=== PATIENT | female | born 1990 | race Caucasian/White ===

== ENCOUNTER → 2019-06-14 | Outpatient (CLI) | payer BC ==
[2019-06-15 15:07] LABS: HPV 16 Negative (Negative); HPV 18 Negative (Negative); HPV OTHER HR TYPES Negative (Negative)
== END | disposition home or self-care (01) ==
LOC: LAB 10:22 → LAB SHORT 10:22
PROVIDERS: Student in an Organized Health Care Education/Training Program
DX: Z01.419 Encounter for gynecological examination (general) (routine) without abnormal findings (principal)
CPT/HCPCS: 87624; G0145

== ENCOUNTER → 2020-01-30 | Outpatient (CLI) | payer BC | END | disposition home or self-care (01) | LOC: LAB 09:00 → LAB SHORT 09:00 → LAB FUT 12-21 10:00 | DX: N20.2 Calculus of kidney with calculus of ureter (principal) | CPT/HCPCS: 81050 ==

== ENCOUNTER → 2024-06-14 | Outpatient (CLI) | payer BC ==
[2024-06-14 15:12] LABS: Source, Urine Clean Catch
[2024-06-14 17:27] LABS: Appearance, Urine Clear (Clear); Bilirubin, Urine Neg (Neg); Blood, Urine Neg (Neg); Glucose Qualitative, Urine Neg (Neg); Ketones, Urine Neg (Neg); Leukocyte Esterase, Urine 3+ (Neg); Nitrite, Urine Neg (Neg); Protein, Urine Neg (Neg); Urobilinogen, Urine NORM (Normal)
[2024-06-14 17:31] LABS: BASOPHILS ABSOLUTE AUTO 0.15 K/mm3 (0.00-0.23); BASOPHILS PERCENT AUTO 1 % (0-2); EOSINOPHILS ABSOLUTE AUTO 0.39 K/mm3 (0.00-0.68); EOSINOPHILS PERCENT AUTO 3 % (0-6); Hematocrit 39.6 % (33.0-51.0); Hemoglobin 13.2 g/dL (11.5-16.0); IMMATURE GRAN ABSOLUTE AUTO 0.03 K/mm3 (0.00-0.10); IMMATURE GRAN PERCENT AUTO 0 % (0-1); LYMPHOCYTES ABSOLUTE AUTO 3.04 K/mm3 (0.84-5.20); LYMPHOCYTES PERCENT AUTO 25 % (21-46); MONOCYTES ABSOLUTE AUTO 0.99 K/mm3 (0.16-1.47); MONOCYTES PERCENT AUTO 8 % (4-13); Mean Corpuscular HGB 29.3 pg (26.0-34.0); Mean Corpuscular HGB Conc 33.3 g/dL (31.5-36.5); Mean Corpuscular Volume 88 fL (80-100); NEUTROPHILS PERCENT AUTO 62 % (41-73); Platelet Count 378 K/mm3 (150-400); RDW Coefficient Variation 12.8 % (11.7-14.2); RDW Standard Deviation 41.5 fL (35.1-46.3)
[2024-06-14 17:38] LABS: Color, Urine Pale Yellow (P-Yellow)
[2024-06-14 17:40] LABS: Bacteria Few /hpf; Red Blood Cells, Urine 0-2 /hpf (0-2); Squamous Epithelial Cells Few /hpf (Few)
[2024-06-15 16:05] LABS: HEPATITIS B SURFACE ANTIGEN Negative (Negative)
[2024-06-16 10:18] LABS: HIV 1,2 COMBO ANTIGEN/ANTIBODY Negative (Negative)
[2024-06-16 12:31] LABS: HEPATITIS C AB CIA INTERP Negative (Negative); HEPATITIS C ANTIBODY CIA INDEX 0.02 IV
== END | disposition home or self-care (01) ==
LOC: LAB SHORT 15:06
PROVIDERS: Registered Nurse Community Health
DX: Z34.91 Encounter for supervision of normal pregnancy, unspecified, first trimester (principal)
CPT/HCPCS: 81001; 83036; 84443; 86803; 87086; 87340; 87389

== ENCOUNTER → 2024-07-06 | Outpatient (CLI) | payer BC | END | disposition home or self-care (01) | LOC: LAB 13:57 → LAB SHORT 13:57 | DX: R30.0 Dysuria (principal) | CPT/HCPCS: 87077; 87086; 87186 ==

== ENCOUNTER → 2024-08-17 | Outpatient (CLI) | payer BC ==
[2024-08-17 19:52] LABS: Free Thyroxine 0.79 ng/dL (0.70-1.60); Thyroid Stimulating Hormone 1.1 uIU/mL (0.360-4.800); Triiodothyronine, Free 2.77 pg/mL (2.18-3.98)
== END ==
LOC: LAB 18:33 → LAB SHORT 18:33
PROVIDERS: Registered Nurse Community Health
DX: E03.9 Hypothyroidism, unspecified (principal)
CPT/HCPCS: 84439; 84443; 84481

== ENCOUNTER → 2024-09-20 | Outpatient (CLI) | payer BC ==
[2024-09-20 20:11] LABS: Free Thyroxine 0.85 ng/dL (0.70-1.60)
[2024-09-20 20:13] LABS: Thyroid Stimulating Hormone 1.35 uIU/mL (0.360-4.800); Triiodothyronine, Free 2.62 pg/mL (2.18-3.98)
[2024-09-20 21:00] LABS: Chlamydia Trachomatis Urine NOT DETECTED (NOT DETECT); Neisseria Gonorrhoea Urine NOT DETECTED (NOT DETECT)
== END ==
LOC: LAB 18:51 → LAB SHORT 18:51
PROVIDERS: Registered Nurse Community Health
DX: O99.282 Endocrine, nutritional and metabolic diseases complicating pregnancy, second trimester (principal); Z3A.00 Weeks of gestation of pregnancy not specified
CPT/HCPCS: 84439; 84443; 84481; 87491; 87591

== ENCOUNTER → 2024-12-21 | Outpatient (CLI) | payer BC ==
[2024-12-21 20:46] LABS: Thyroid Stimulating Hormone 1.78 uIU/mL (0.360-4.800)
== END ==
LOC: LAB SHORT 18:12 → LAB 18:12
PROVIDERS: Registered Nurse Community Health
DX: E03.9 Hypothyroidism, unspecified (principal)
CPT/HCPCS: 84439; 84443; 84481

== ENCOUNTER → 2025-01-03 | Outpatient (CLI) | payer BC | LOC: LAB 12:00 → LAB SHORT 12:00 | DX: Z34.03 Encounter for supervision of normal first pregnancy, third trimester (principal) | CPT/HCPCS: 87081; 87150 ==

== ENCOUNTER 2025-02-03 18:26 | Inpatient (IN) | payer BC ==
[~2025-02-03] VITALS: Ht 162.6 cm; Wt 85.0 kg
[~2025-02-03 18:26] MED LIST: Tranexamic Acid 1000 MG/10 ML 10ML Vial (SDV) XX ONE
[2025-02-03 18:47] VITALS: BP 133/86
[2025-02-03 19:02] VITALS: BP 127/82
[2025-02-03 19:17] VITALS: BP 139/87
[2025-02-03 19:32] VITALS: BP 134/88
[2025-02-03 20:30] VITALS: BP 133/84
[2025-02-03] MEDS ORDERED: OXYTOCIN/RINGER'S LACTATE 500 ML IV PRN (22:50)
[2025-02-03] MEDS ORDERED: Ondansetron HCl 2 MG / ML 2ML Vial IV PRN (22:50)
[2025-02-03] MEDS ORDERED: Oxytocin 10 Unit / ML Vial IM PRN (22:50)
[2025-02-03] MEDS ORDERED: ePHEDrine Sulfate 50 MG/ML 1ML Injection XX PRN (22:50)
[2025-02-03] MEDS ORDERED: Tranexamic Acid 100 ML IV SCH (22:50)
[2025-02-03] MEDS ORDERED: FentaNYL Citrate 50 MCG/ML 2 ML Injection IV PRN (22:50)
[2025-02-03] MEDS ORDERED: FentaNYL 2mcg/ml-Bup 0.1% Epd 250 ML EPI PRN (22:50)
[2025-02-03] MEDS ORDERED: Carboprost Tromethamine 250 MCG/ML 1ML Amp IM PRN (22:50)
[2025-02-03] MEDS ORDERED: Methylergonovine Maleate 0.2MG / ML 1ML Amp IM PRN (22:50)
[2025-02-03 22:57] LABS: BASOPHILS ABSOLUTE AUTO 0.08 K/mm3 (0.00-0.23); BASOPHILS PERCENT AUTO 1 % (0-2); EOSINOPHILS ABSOLUTE AUTO 0.13 K/mm3 (0.00-0.68); EOSINOPHILS PERCENT AUTO 1 % (0-6); Hematocrit 37.0 % (33.0-51.0); Hemoglobin 12.9 g/dL (11.5-16.0); IMMATURE GRAN ABSOLUTE AUTO 0.19 K/mm3 (0.00-0.10); IMMATURE GRAN PERCENT AUTO 2 % (0-1); LYMPHOCYTES ABSOLUTE AUTO 3.12 K/mm3 (0.84-5.20); LYMPHOCYTES PERCENT AUTO 26 % (21-46); MONOCYTES ABSOLUTE AUTO 0.98 K/mm3 (0.16-1.47); MONOCYTES PERCENT AUTO 8 % (4-13); Mean Corpuscular HGB Conc 34.9 g/dL (31.5-36.5); Mean Corpuscular Volume 88 fL (80-100); NEUTROPHILS ABSOLUTE AUTO 7.75 K/mm3 (1.96-9.15); NEUTROPHILS PERCENT AUTO 63 % (41-73); NRBC ABSOLUTE 0.00 K/mm3 (0.00-0.02); NRBC Auto 0.0 /100 WBC (0.0-0.2); Platelet Count 304 K/mm3 (150-400); RDW Coefficient Variation 13.2 % (11.7-14.2); RDW Standard Deviation 42.1 fL (35.1-46.3)
[2025-02-03] MEDS ORDERED: ZYRTEC10 M1 PO (23:32)
[2025-02-03] MEDS ORDERED: Cranberry425 MG PO (23:33)
[2025-02-03] MEDS ORDERED: CHOLINE500 MG PO (23:33)
[2025-02-03] MEDS ORDERED: FISH OIL 1,0001 EA10 PO (23:34)
[2025-02-03] MEDS ORDERED: LEVOTHYROXINE25 MC9 PO (23:35)
[2025-02-03] MEDS ORDERED: FLOMAX0.4 MG PO (23:36)
[2025-02-03] MEDS ORDERED: BUPR150ER PO (23:36)
[2025-02-03] MEDS ORDERED: PANT40 PO (23:37)
[2025-02-03 23:46] VITALS: BP 145/78
[2025-02-04] VITALS (38 sets, daily range): BP systolic 82–147; BP diastolic 52–91
[2025-02-04] MEDS ORDERED: OXYTOCIN/RINGER'S LACTATE 500 ML IV SCH (03:45)
[2025-02-04] MEDS ORDERED: FentaNYL Citrate 50 MCG/ML 2 ML Injection ONE (10:09)
[2025-02-05] VITALS (29 sets, daily range): BP systolic 96–134; BP diastolic 49–104
[2025-02-05] MEDS ORDERED: Penicillin G Potassium 5,000,000 UNITS in NS 250 ML IV ONE (02:30)
[2025-02-05] MEDS ORDERED: CeFAZolin Sodium 2,000 MG in NS 100 ML IV SCH ×2 (05:55→15:00)
[2025-02-05] MEDS ORDERED: Citric Acid/Sodium Citrate 30 ML BTL PO PRN (06:00)
[2025-02-05] MEDS ORDERED: Metoclopramide HCl 5MG / ML 2ML Vial IV PRN (06:00)
[2025-02-05] MEDS ORDERED: Penicillin G Potassium 2,500,000 UNITS in Dextrose 5% 100 ML IV SCH (07:00)
[2025-02-05] MEDS ORDERED: Phenylephrine HCl 100 MCG/ML-NS 10MLSYR (1MG/10ML) ONE (07:02)
[2025-02-05] MEDS ORDERED: Lidocaine HCl 2% 10 ML SDA ONE ×3 (07:08→07:20)
[2025-02-05] MEDS ORDERED: Oxytocin 10 Unit / ML Vial ONE ×4 (07:08→07:29)
[2025-02-05] MEDS ORDERED: FentaNYL Citrate 50 MCG/ML 2 ML Injection ONE ×2 (07:10→07:33)
[2025-02-05] MEDS ORDERED: Methylergonovine Maleate 0.2MG / ML 1ML Amp ONE (07:13)
[2025-02-05 07:40] LABS: PCO2 Cord - Arterial 61.4 mmHg (40-50); PO2 Cord - Arterial < 12.3 mmHg (16-20); pH Cord - Arterial 7.21 (7.28-7.35)
[2025-02-05 07:43] LABS: PCO2 Cord - Venous 44.8 mmHg (40-50); PO2 Cord - Venous 22.5 mmHg (28-32); pH Umbilical Cord - Venous 7.32 (7.26-7.35)
--- NOTE | 2025-02-05 07:51 | NUR ---
02/05/25 0751 Omaira Smith VIABLE INFANT DELIVERED VIA PRIMARY C/S FOR FAIL TO PROGRESS AT 0709. GASES SENT WITH RT WELL CORD BLOOD. BAKRI BALLOON PLACED BY MANUEL. SEE MD NOTES FOR OPERATIVE DETAILS. APGARS AND INFANT DETAILS PENDING AT THIS TIME.
[2025-02-05] MEDS ORDERED: OXYTOCIN/RINGER'S LACTATE 500 ML IV SCH (08:05)
[2025-02-05] MEDS ORDERED: Ondansetron HCl 2 MG / ML 2ML Vial IV PRN ×2 (08:10→08:40)
[2025-02-05] MEDS ORDERED: Morphine Sulfate 4 MG/1 ML Injection IV PRN (08:10)
[2025-02-05] MEDS ORDERED: OxyCODONE 5 mg/Acetamin 325 mg TABLET PO PRN (08:15)
[2025-02-05] MEDS ORDERED: Magnesium Hydroxide Conc 10 ML UDC PO PRN (08:15)
[2025-02-05] MEDS ORDERED: HYDROmorphone HCl/Pf 1MG SYR IV PRN (08:40)
[2025-02-05] MEDS ORDERED: FentaNYL Citrate 50 MCG/ML 2 ML Injection IV PRN ×2 (08:40→12:30)
[2025-02-05] MEDS ORDERED: Prenatal Vit/FE Fumarate/FA 1 Tab PO SCH (09:00)
[2025-02-05] MEDS ORDERED: Ketorolac Tromethamine 30mg Vial IV SCH (09:00)
--- NOTE | 2025-02-05 10:02 | NUR ---
PT HAD PCS THIS AM PATIENT HAS BAKRI BALOON IN PLACE FOR BLEEDING RISK FACTORS, GARCIA IN PLACE AND URINE HAS LIGHTENED SINCE RETURNING TO ROOM. U/S GUIDED IV REQUESTED FOR SECOND LINE PLACEMENT. PICCO DRESSING IN PLACE WITH DIME SIZE DRAINAGE AND HAS REMAINED THE SAME SIDE.
[2025-02-05 12:43] LABS: BASOPHILS ABSOLUTE AUTO 0.05 K/mm3 (0.00-0.23); BASOPHILS PERCENT AUTO 0 % (0-2); EOSINOPHILS ABSOLUTE AUTO 0.00 K/mm3 (0.00-0.68); EOSINOPHILS PERCENT AUTO 0 % (0-6); Hematocrit 28.3 % (33.0-51.0); Hemoglobin 9.6 g/dL (11.5-16.0); IMMATURE GRAN ABSOLUTE AUTO 0.15 K/mm3 (0.00-0.10); IMMATURE GRAN PERCENT AUTO 1 % (0-1); LYMPHOCYTES ABSOLUTE AUTO 1.07 K/mm3 (0.84-5.20); LYMPHOCYTES PERCENT AUTO 5 % (21-46); MONOCYTES ABSOLUTE AUTO 1.44 K/mm3 (0.16-1.47); MONOCYTES PERCENT AUTO 7 % (4-13); Mean Corpuscular HGB Conc 33.9 g/dL (31.5-36.5); Mean Corpuscular Volume 91 fL (80-100); NEUTROPHILS ABSOLUTE AUTO 18.99 K/mm3 (1.96-9.15); NEUTROPHILS PERCENT AUTO 88 % (41-73); NRBC ABSOLUTE 0.00 K/mm3 (0.00-0.02); NRBC Auto 0.0 /100 WBC (0.0-0.2); Platelet Count 199 K/mm3 (150-400); RDW Coefficient Variation 13.3 % (11.7-14.2); RDW Standard Deviation 43.6 fL (35.1-46.3)
--- NOTE | 2025-02-05 14:45 | NUR ---
Late entry Dr. Gonzalez at BS at 1200 to [place], 80cc of aire removed per Dr. Gonzalez and 30cc of NS was placed after air removal, additiona medications ordered for pain magement.
--- NOTE | 2025-02-05 21:50 | NUR ---
POWERGLIDE DRESSING CHANGED BY ADAMA Luna RN
--- NOTE | 2025-02-05 22:45 | NUR ---
assumed care of pt, report recieved from kika chow.
[2025-02-06 03:22] VITALS: BP 100/64
[2025-02-06 06:26] LABS: BASOPHILS ABSOLUTE AUTO 0.08 K/mm3 (0.00-0.23); BASOPHILS PERCENT AUTO 0 % (0-2); EOSINOPHILS ABSOLUTE AUTO 0.11 K/mm3 (0.00-0.68); EOSINOPHILS PERCENT AUTO 1 % (0-6); Hematocrit 29.1 % (33.0-51.0); Hemoglobin 9.7 g/dL (11.5-16.0); IMMATURE GRAN ABSOLUTE AUTO 0.23 K/mm3 (0.00-0.10); IMMATURE GRAN PERCENT AUTO 1 % (0-1); LYMPHOCYTES ABSOLUTE AUTO 2.38 K/mm3 (0.84-5.20); LYMPHOCYTES PERCENT AUTO 12 % (21-46); MONOCYTES ABSOLUTE AUTO 1.76 K/mm3 (0.16-1.47); MONOCYTES PERCENT AUTO 9 % (4-13); Mean Corpuscular HGB Conc 33.3 g/dL (31.5-36.5); Mean Corpuscular Volume 92 fL (80-100); NEUTROPHILS ABSOLUTE AUTO 15.48 K/mm3 (1.96-9.15); NEUTROPHILS PERCENT AUTO 77 % (41-73); NRBC ABSOLUTE 0.00 K/mm3 (0.00-0.02); NRBC Auto 0.0 /100 WBC (0.0-0.2); Platelet Count 236 K/mm3 (150-400); RDW Coefficient Variation 13.4 % (11.7-14.2); RDW Standard Deviation 45.8 fL (35.1-46.3)
[2025-02-06 07:37] VITALS: BP 100/54
--- NOTE | 2025-02-06 09:35 | NUR ---
0908 - [facility] BALLOON REMOVED BY DR. JACKSON.
[2025-02-06 11:28] VITALS: BP 110/65
[2025-02-06 17:20] VITALS: BP 122/68
[2025-02-06 20:09] VITALS: BP 124/65
[2025-02-06 23:31] VITALS: BP 111/68
[2025-02-07 04:32] VITALS: BP 132/82
[2025-02-07 07:41] VITALS: BP 151/91
[2025-02-07] MEDS ORDERED: Percocet 5-3251 EACH PO (12:03)
[2025-02-07 12:32] VITALS: BP 130/82
== END 2025-02-07 13:05 | disposition home or self-care (01) | DRG 788 ==
LOC: OBS 18:26 → BC 18:29 → OBS 22:11 → BC 02-04 20:00
PROVIDERS: Obstetrics & Gynecology; ADMIT Registered Nurse Community Health
PROC: 0W3R0ZZ Control Bleeding in Genitourinary Tract, Open Approach (ICD-10-PCS; 2025-02-05)
PROC: 10D00Z1 Extraction of Products of Conception, Low, Open Approach (ICD-10-PCS; principal; 2025-02-05 07:00)
DX: O48.0 Post-term pregnancy (principal); O99.284 Endocrine, nutritional and metabolic diseases complicating childbirth; E03.9 Hypothyroidism, unspecified; Z37.0 Single live birth; O43.213 Placenta accreta, third trimester; Z79.890 Hormone replacement therapy; Z79.899 Other long term (current) drug therapy; Z3A.40 40 weeks gestation of pregnancy
CPT/HCPCS: 36415; 51702; 76819; 81003; 82803; 85025; 86850; 86900; 86901; 86923; 99214; A9270; J0690; J2003; J2210; J2270; J2371; J2405; J2540; J2590; J3010; J7050; J7120